=== PATIENT | male | born 1950 | race Caucasian/White ===

== ENCOUNTER 2020-04-07 01:56 | Emergency (ER) | payer MEDICARE, BC ==
[2020-04-07] MEDS ORDERED: Lactated Ringers 1,000 ML IV ONE (02:39)
--- NOTE | 2020-04-07 02:46 | EDM.PDOC ---
ED HPI GENERAL MEDICAL PROBLEM - General Chief Complaint: Gastrointestinal Problem Stated Complaint: DARK URINE AND VOMITING Time Seen by Provider: 04/07/20 02:27 Source of Information: Reports: Patient, Family () History Limitations: Reports: No Limitations - History of Present Illness INITIAL COMMENTS - FREE TEXT/NARRATIVE: Mr. Damien Tay is a very pleasant 69-year-old gentleman with a past medical history significant for dyslipidemia, on atorvastatin, who now presents the ED stating that he felt fine when he went to bed around 23:30 last night, but woke around 01:00 this morning with urinary urgency. When he urinated, he states that his urine was very dark, like [employer]. No associated pain. He then developed nausea, and vomited 4 times. He then had a bowel movement, and noticed that his urine was clear, but of low volume. The patient states that he suffered acute renal failure about 7 or 8 years ago, and he is concerned that his current symptoms are due to the same thing. He states that he performed physical activity for about 17 hours yesterday, and nearly that much the day before. He acknowledges that he has not had an adequate fluid intake, however, he denies feeling thirsty. No muscle aches. The patient states that he took 2 tablets of naproxen, for knee pain, before going to bed. He states that he drank about 16 ounces of water after he vomited this morning. Here in the ED, the patient is found to be hemodynamically stable, afebrile, saturating 98% on room air. Other than this morning symptoms, the patient denies recent fever, chills, sore throat, ear pain, nasal or sinus congestion, cough, dyspnea, chest pain, palpitations, nausea, vomiting, constipation, diarrhea, abdominal pain, urinary symptoms, recent weight gain or weight loss, recent bloody bowel movements or black bowel movements, recent joint aches, headaches, or rashes. The patient's PCP is Dr. Marcell Pederson, at [facility]. - Related Data Allergies Allergy/AdvReac Type Severity Reaction Status Date / Time No Known Allergies Allergy Verified 04/07/20 02:09 Home Meds: Home Meds atorvaSTATin [Lipitor] 10 mg PO DAILY 04/07/20 [History] Past Medical History HEENT History: Reports: Impaired Vision (wears glasses) Cardiovascular History: Reports: High Cholesterol - Past Surgical History Male Surgical History: Reports: Vasectomy Social & Family History - Tobacco Use Smoking Status *Q: Never Smoker Second Hand Smoke Exposure: No - Caffeine Use Caffeine Use: Reports: Soda - Alcohol Use Alcohol Use History: Yes Days Per Week of Alcohol Use: 1 Number of Drinks Per Day: 3 Total Drinks Per Week: 3 Alcohol Use Frequency: Socially - Recreational Drug Use Recreational Drug Use: Yes Drug Use in Last 12 Months: No Recreational Drug Type: Reports: Marijuana/Hashish (last smoked in college) - Living Situation & Occupation Living situation: Reports: , with Spouse Occupation: Retired ED ROS GENERAL - Review of Systems Review Of Systems: Comprehensive ROS is negative, except as noted in HPI. ED EXAM, GENERAL - Physical Exam Exam: See Below Exam Limited By: No Limitations General Appearance: Alert, WD/WN, No Apparent Distress Eye Exam: Bilateral Eye: EOMI, Normal Inspection, Other (No scleral icterus) Ears: Normal External Exam, Hearing Grossly Normal Nose: Normal Inspection Throat/Mouth: Normal Inspection, Normal Lips, Normal Voice, No Airway Compromise Head: Atraumatic, Normocephalic Neck: Normal Inspection, Full Range of Motion Respiratory/Chest: No Respiratory Distress, Lungs Clear, Normal Breath Sounds, No Accessory Muscle Use Cardiovascular: Normal Peripheral Pulses, Regular Rate, Rhythm, No Edema, No Gallop, No JVD, No Murmur, No Rub Peripheral Pulses: 3+: Radial (L), Radial (R) GI/Abdominal: Normal Bowel Sounds, Soft, Non-Tender, No Organomegaly, No Distention, No Abnormal Bruit, No Mass (Male) Exam: Deferred Rectal (Males) Exam: Deferred Back Exam: Normal Inspection, Full Range of Motion Extremities: Normal Inspection, Normal Range of Motion, No Pedal Edema, Normal Capillary Refill Neurological: Alert, Oriented, Normal Cognition, No Motor/Sensory Deficits Psychiatric: Normal Affect Skin Exam: Warm, Dry, Intact, Normal Color, No Rash Course - Vital Signs Last Recorded V/S: Last Vital Signs Temp 36.1 C 04/07/20 02:07 Pulse 67 04/07/20 02:07 Resp 12 04/07/20 02:07 BP 121/77 04/07/20 02:07 Pulse Ox 98 04/07/20 02:07 Orthostatic Blood Pressure [ 110/78 Standing] Orthostatic Blood Pressure [ 121/66 Sitting] Orthostatic Blood Pressure [ 117/66 Supine] - Orders/Labs/Meds Orders: Active Orders 24 hr Category Date Time Status Orthostatic Vital Signs [RC] STAT Care 04/07/20 02:37 Active Labs: Laboratory Tests 04/07/20 04/07/20 04/07/20 Range/Units 02:20 02:20 02:20 WBC 11.30 H (4.23-9.07) K/mm3 RBC 4.84 (4.63-6.08) M/mm3 Hgb 14.2 (13.7-17.5) gm/dl Hct 43.6 (40.1-51.0) % MCV 90.1 (79.0-92.2) fl MCH 29.3 (25.7-32.2) pg MCHC 32.6 (32.2-35.5) g/dl RDW Std Deviation 46.4 H (35.1-43.9) fL Plt Count 225 (163-337) K/mm3 MPV 10.9 (9.4-12.3) fl Neutrophils % (Manual) 74 H (40-60) % Band Neutrophils % 7 (0-10) % Lymphocytes % (Manual) 9 L (20-40) % Atypical Lymphs % 0 % Monocytes % (Manual) 9 (2-10) % Eosinophils % (Manual) 1 (0.8-7.0) % Basophils % (Manual) 0 L (0.2-1.2) Platelet Estimate Adequate Plt Morphology Comment Normal RBC Morph Comment Normal PT 10.7 (9.7-12.0) SECONDS INR 0.98 APTT 22 (22-31) SECONDS D-Dimer, Quantitative 0.95 H (0.19-0.50) mg/L Sodium 144 (136-145) mEq/L Potassium 3.8 (3.5-5.1) mEq/L Chloride 107 (98-107) mEq/L Carbon Dioxide 29 (21-32) mEq/L Anion Gap 11.8 (5-15) BUN 30 H (7-18) mg/dL Creatinine 1.2 (0.7-1.3) mg/dL Est Cr Clr Drug Dosing 61.68 mL/min Estimated GFR (MDRD) > 60 (>60) mL/min BUN/Creatinine Ratio 25.0 H (14-18) Glucose 110 (80-115) mg/dL Calcium 8.8 (8.5-10.1) mg/dL Magnesium 1.9 (1.8-2.4) mg/dl Total Bilirubin 0.3 (0.2-1.0) mg/dL AST 29 (15-37) U/L ALT 26 (16-63) U/L Alkaline Phosphatase 73 (46-116) U/L Creatine Kinase 312 H (39-308) U/L C-Reactive Protein 0.7 (<1.0) mg/dL Total Protein 7.0 (6.4-8.2) g/dl Albumin 4.1 (3.4-5.0) g/dl Globulin 2.9 gm/dL Albumin/Globulin Ratio 1.4 (1-2) Urine Color (Yellow) Urine Appearance (Clear) Urine pH (5.0-8.0) Ur Specific Burton (1.005-1.030) Urine Protein (Negative) Urine Glucose (UA) (Negative) Urine Ketones (Negative) Urine Occult Blood (Negative) Urine Nitrite (Negative) Urine Bilirubin (Negative) Urine Urobilinogen (0.2-1.0) Ur Leukocyte Esterase (Negative) Urine RBC (0-5) /hpf Urine WBC (0-5) /hpf Ur Epithelial Cells (0-5) /hpf Urine Bacteria (FEW) /hpf Urine Mucus (FEW) /hpf Salicylates (2.8-20) mg/dL 04/07/20 04/07/20 Range/Units 02:20 04:04 WBC (4.23-9.07) K/mm3 RBC (4.63-6.08) M/mm3 Hgb (13.7-17.5) gm/dl Hct (40.1-51.0) % MCV (79.0-92.2) fl MCH (25.7-32.2) pg MCHC (32.2-35.5) g/dl RDW Std Deviation (35.1-43.9) fL Plt Count (163-337) K/mm3 MPV (9.4-12.3) fl Neutrophils % (Manual) (40-60) % Band Neutrophils % (0-10) % Lymphocytes % (Manual) (20-40) % Atypical Lymphs % % Monocytes % (Manual) (2-10) % Eosinophils % (Manual) (0.8-7.0) % Basophils % (Manual) (0.2-1.2) Platelet Estimate Plt Morphology Comment RBC Morph Comment PT (9.7-12.0) SECONDS INR APTT (22-31) SECONDS D-Dimer, Quantitative (0.19-0.50) mg/L Sodium (136-145) mEq/L Potassium (3.5-5.1) mEq/L Chloride (98-107) mEq/L Carbon Dioxide (21-32) mEq/L Anion Gap (5-15) BUN (7-18) mg/dL Creatinine (0.7-1.3) mg/dL Est Cr Clr Drug Dosing mL/min Estimated GFR (MDRD) (>60) mL/min BUN/Creatinine Ratio (14-18) Glucose (80-115) mg/dL Calcium (8.5-10.1) mg/dL Magnesium (1.8-2.4) mg/dl Total Bilirubin (0.2-1.0) mg/dL AST (15-37) U/L ALT (16-63) U/L Alkaline Phosphatase (46-116) U/L Creatine Kinase (39-308) U/L C-Reactive Protein (<1.0) mg/dL Total Protein (6.4-8.2) g/dl Albumin (3.4-5.0) g/dl Globulin gm/dL Albumin/Globulin Ratio (1-2) Urine Color Yellow (Yellow) Urine Appearance Clear (Clear) Urine pH 7.0 (5.0-8.0) Ur Specific Burton 1.025 (1.005-1.030) Urine Protein Trace H (Negative) Urine Glucose (UA) Negative (Negative) Urine Ketones Negative (Negative) Urine Occult Blood Negative (Negative) Urine Nitrite Negative (Negative) Urine Bilirubin Negative (Negative) Urine Urobilinogen 1.0 (0.2-1.0) Ur Leukocyte Esterase Negative (Negative) Urine RBC 0-5 (0-5) /hpf Urine WBC 0-5 (0-5) /hpf Ur Epithelial Cells Not seen (0-5) /hpf Urine Bacteria Rare (FEW) /hpf Urine Mucus Few (FEW) /hpf Salicylates 1.0 L (2.8-20) mg/dL Meds: Medications Discontinued Medications Generic Name Dose Route Start Last Admin Trade Name Saad PRN Reason Stop Dose Admin Lactated Ringer's 1,000 mls @ 999 mls/hr 04/07/20 02:39 04/07/20 02:49 Ringers, Lactated IV 04/07/20 03:39 999 mls/hr .BOLUS ONE Administration - Re-Assessments/Exams Free Text/Narrative Re-Assessment/Exam: 04/07/20 02:40 As above, the patient woke around 1:00 this morning with urinary urgency, and urinated dark urine, then developed nausea and vomited 4 times. A subsequent urination was clear. The patient states that he worked about 17 hours yesterday , and nearly that much the day before. I am concerned about rhabdomyolysis, which could be potentiated due to the patient being on atorvastatin. I have ordered a work-up that includes orthostatics, to get an idea of how intravascularly dry he might be, along with blood work that includes a CPK, and a urinalysis. In the meantime, the patient will be given IV fluid. 04/07/20 03:07 The patient is not orthostatic. 04/07/20 03:28 The patient's CBC is remarkable for a WBC count mildly elevated at 11.30, with 7 % bandemia. The remainder of his CBC is unremarkable. His CMP is remarkable for a BUN elevated at 30, but with a Cr normal at 1.2. The remainder of his CMP is unremarkable. His magnesium level is within normal limits at 1.9. His CPK is mildly elevated at 312. His CRP is slightly elevated at 0.7. His salicylate level is within normal limits at 1.0. His D-dimer is modestly elevated at 0.95. His coags are within normal limits. The patient has not yet provided a urine sample for the urinalysis. 04/07/20 04:33 The patient's urinalysis is unremarkable. 04/07/20 04:38 Test results discussed with the patient and his . As above, today's work- up is largely unremarkable, and does not explain how his urine could have been dark earlier on. His elevated BUN to Cr ratio indicates that he was a little intravascularly dry, but not to the point that he was orthostatic. His CPK was mildly elevated at 312, but nowhere near the cutoff of 1500 that is needed for a diagnosis of rhabdomyolysis. His total bilirubin was only 0.3. The patient suspects that there may have been a chemical in their camper toilet that made the urine look dark. Going forward, I recommended that the patient stay adequately hydrated. Departure - Departure Time of Disposition: 04:39 Disposition: Home, Self-Care 01 Condition: Good Clinical Impression: Nausea & vomiting, Intravascular volume depletion - Discharge Information *PRESCRIPTION DRUG MONITORING PROGRAM REVIEWED*: Not Applicable *COPY OF PRESCRIPTION DRUG MONITORING REPORT IN PATIENT MORALES: Not Applicable Referrals: Marcell Pederson MD [Ordering Only Provider] - Forms: ED Department Discharge Additional Instructions: You were seen in the emergency room after urinating what appeared to be very dark urine, followed by nausea and vomiting. Work-up in the ER included blood work and a urinalysis, all of which were unremarkable, and do not explain how your urine could have been so dark. You do not have rhabdomyolysis (significant muscle breakdown), you are not in renal failure, and you are not jaundiced. You were given a liter of IV fluid in the ER. Going forward, we recommend that you stay adequately hydrated. Gatorade or Powerade are best. If any other problems, please do not hesitate to return to the ER. Sepsis Event Note - Evaluation Sepsis Screening Result: No Definite Risk - Focused Exam Vital Signs: Vital Signs Temp Pulse Resp BP Pulse Ox 04/07/20 02:07 36.1 C 67 12 121/77 98 Date Exam was Performed: 04/07/20 Time Exam was Performed: 04:33 - My Orders Last 24 Hours: My Active Orders 04/07/20 02:37 Orthostatic Vital Signs [RC] STAT - Assessment/Plan Last 24 Hours: My Active Orders 04/07/20 02:37 Orthostatic Vital Signs [RC] STAT
== END 2020-04-07 04:55 | disposition home or self-care (01) ==
LOC: JD.ED 01:56
DX: E86.9 Volume depletion, unspecified (principal); R11.2 Nausea with vomiting, unspecified; E78.00 Pure hypercholesterolemia, unspecified; Z79.899 Other long term (current) drug therapy
CPT/HCPCS: 36415; 80053; 80307; 81001; 82550; 83735; 85007; 85027; 85379; 85610; 85730; 86140; 96360; 99284; J7120; 99283